=== PATIENT | male | born 1985 | race Caucasian/White ===

== ENCOUNTER 2022-03-17 10:18 | Observation (INO) ==
[2022-03-17] MEDS ORDERED: HYDROmorphone 1 MG/1 ML SYRINGE IV STA (10:43)
[2022-03-17] MEDS ORDERED: KETOROLAC 30 MG/1 ML VIAL IV STA (10:43)
[2022-03-17] MEDS ORDERED: SODIUM CHLORIDE 0.9% 1,000 ML IV STA (10:43)
[2022-03-17] MEDS ORDERED: ONDANSETRON 4 MG/2 ML VIAL IV STA (10:43)
[2022-03-17 11:00] LABS: Basophils # 0.1 10*3/uL (0.0-0.2); Basophils % 0.5 % (0.0-0.8); Eosinophils # 0.3 10*3/uL (0.0-0.87); Eosinophils % 1.9 % (0.00-10.9); Hematocrit 41.3 VOL% (42.0-52.0); Hemoglobin 14.1 GM/DL (14.0-18.0); Immature Granulocytes % 0.3 %; Immature Granulocytes Absolute 0.05 #; Lymphocytes # 1.6 10*3/uL (1.4-4.0); Lymphocytes % 11.1 % (21.2-54.2); Mean Corpuscular HGB Conc 34.1 GM/DL (32-36); Mean Corpuscular Volume 85.7 FL (87-102); Mean Platelet Volume 11.1 FL (9.6-12.0); Monocytes # 1.2 10*3/uL (0.11-0.8); Monocytes % 8.1 % (1.7-12.7); Neutrophils % 78.1 % (38.7-73.9); Platelet Count 229 T/CUMM (130-400); Red Blood Count 4.82 MC/CUMM (3.8-5.5); Red Cell Distribution Width 12.5 % (9.3-17.3); White Blood Count 14.6 T/CUMM (4-12)
[2022-03-17 11:20] LABS: Albumin 3.4 G/DL (3.4-5.0); Bilirubin,Total 0.6 MG/DL (0.20-1.00); Calcium 9.1 MG/DL (8.5-10.1); Osmolality,Calculated 277.7 MOS/KG (273-304); Potassium 3.8 MMOL/L (3.5-5.1); Total Protein 6.9 G/DL (6.4-8.2)
[2022-03-17 11:49] LABS: Bilirubin,Urine Negative (Negative); Blood, Urine Negative (Negative); Glucose,Urine (UA) Negative (Negative); Ketones,Urine Negative (Negative); Nitrite,Urine Negative (Negative); Protein,Urine Negative (Negative); Urine Appearance Clear (Clear); Urine Color Yellow (Yellow); Urine Urobilinogen 0.2 eU/dL (<2.0); Urine pH 5.5 (4.5-8.0)
[2022-03-17 11:54] LABS: Mucus,Urine Occasional /LPF (Occasional); RBC,Urine 1 /HPF (0-4)
[2022-03-17] MEDS ORDERED: cefTRIAXone 1,000 MG in SODIUM CHLORIDE 0.9% 100 ML IV ONE (12:16)
[2022-03-17] MEDS ORDERED: SIMETHICONE CHEW 125 MG TABLET PO PRN (12:17)
[2022-03-17] MEDS ORDERED: PROMETHAZINE 25 MG/1 ML VIAL IM PRN (12:17)
[2022-03-17] MEDS ORDERED: diphenhydrAMINE 50 MG/1 ML VIAL IV PRN ×2 (12:17→13:05)
[2022-03-17] MEDS ORDERED: ONDANSETRON 4 MG/2 ML VIAL IV PRN ×2 (12:17→13:05)
[2022-03-17] MEDS ORDERED: HYDROmorphone 1 MG/1 ML SYRINGE IV PRN (12:21)
[2022-03-17] MEDS ORDERED: oxyCODONE/ACETAMINOPHEN 5-325 MG TABLET PO PRN (12:21)
[2022-03-17] MEDS: SODIUM CHLORIDE 0.9% 1,000 ML IV SCH ×2 (12:46→22:20)
[2022-03-17] MEDS ORDERED: PROMETHAZINE INJ 25 MG in SODIUM CHLORIDE 0.9% 50 ML IV PRN (13:05)
[2022-03-17] MEDS ORDERED: MEPERIDINE 25 MG/1 ML VIAL IV PRN (13:05)
[2022-03-17] MEDS ORDERED: ROCURONIUM 50 MG/5 ML VIAL IV ONE (13:08)
[2022-03-17] MEDS ORDERED: propofoL 200 MG/20 ML VIAL IV ONE (13:08)
[2022-03-17] MEDS ORDERED: LIDOCAINE 2% 5 ML VIAL ONE (13:08)
[2022-03-17] MEDS ORDERED: fentaNYL 100 MCG/2 ML VIAL ONE (13:08)
[2022-03-17] MEDS ORDERED: SUCCINYLCHOLINE 200 MG/10 ML VIAL ONE (13:08)
[2022-03-17] MEDS ORDERED: MIDAZOLAM 2 MG/2 ML VIAL ONE (13:09)
[2022-03-17] MEDS ORDERED: SEVOFLURANE 1 UNIT/15 MINUTE INH ONE (13:09)
[2022-03-17] MEDS: HYDROmorphone 1 MG/1 ML SYRINGE IV PRN ×2 (14:05→14:10)
[2022-03-17 14:17] LABS: Hyaline Casts,Urine 1 /LPF (0-3); Mucus,Urine Occasional /LPF (Occasional); RBC,Urine 200 /HPF (0-4); Squamous Epithelial Cell,Urine Occasional /HPF (0-10)
[2022-03-17 14:21] LABS: Bilirubin,Urine Negative (Negative); Blood, Urine Large mg/dL (Negative); Glucose,Urine (UA) Negative (Negative); Ketones,Urine Negative (Negative); Nitrite,Urine Negative (Negative); Protein,Urine Negative (Negative); Urine Appearance Clear (Clear); Urine Color Yellow (Yellow); Urine Specific Gravity 1.015 (1.001-1.035); Urine Urobilinogen 0.2 eU/dL (<2.0); Urine pH 5.5 (4.5-8.0)
[2022-03-17] MEDS: ACETAMINOPHEN 325 MG TABLET PO SCH ×2 (14:36→17:55)
[2022-03-17] MEDS: DOCUSATE SODIUM 100 MG CAPSULE PO SCH (22:15)
[2022-03-18] MEDS: ACETAMINOPHEN 325 MG TABLET PO SCH ×3 (01:19→12:38)
[2022-03-18 05:45] LABS: Basophils # 0.1 10*3/uL (0.0-0.2); Basophils % 0.6 % (0.0-0.8); Eosinophils # 0.3 10*3/uL (0.0-0.87); Eosinophils % 3.3 % (0.00-10.9); Hematocrit 39.1 VOL% (42.0-52.0); Hemoglobin 12.8 GM/DL (14.0-18.0); Immature Granulocytes % 0.5 %; Immature Granulocytes Absolute 0.04 #; Lymphocytes # 1.8 10*3/uL (1.4-4.0); Lymphocytes % 21.3 % (21.2-54.2); Mean Corpuscular HGB Conc 32.7 GM/DL (32-36); Mean Corpuscular Volume 88.1 FL (87-102); Mean Platelet Volume 10.9 FL (9.6-12.0); Monocytes # 0.7 10*3/uL (0.11-0.8); Monocytes % 8.4 % (1.7-12.7); Neutrophils % 65.9 % (38.7-73.9); Platelet Count 197 T/CUMM (130-400); Red Blood Count 4.44 MC/CUMM (3.8-5.5); White Blood Count 8.5 T/CUMM (4-12)
[2022-03-18] MEDS ORDERED: FAMOTIDINE 20 MG/2 ML VIAL IV ONE (07:53)
[2022-03-18 07:56] LABS: Calcium 8.5 MG/DL (8.5-10.1); Osmolality,Calculated 277.5 MOS/KG (273-304); Potassium 4.7 MMOL/L (3.5-5.1)
[2022-03-18] MEDS: SODIUM CHLORIDE 0.9% 1,000 ML IV SCH (08:22)
[2022-03-18] MEDS: DOCUSATE SODIUM 100 MG CAPSULE PO SCH (08:45)
[2022-03-18] MEDS ORDERED: LOSARTAN/HCTZ 50-12.5 MG TABLET PO SCH (09:00)
[2022-03-18] MEDS ORDERED: POTASSIUM CHLORIDE 10 MEQ TABLET PO SCH (09:00)
[2022-03-18] MEDS ORDERED: PANTOPRAZOLE 40 MG TABLET PO SCH (09:00)
[2022-03-18] MEDS ORDERED: TAMSULOSIN 0.4 MG CAPSULE PO SCH (09:00)
[2022-03-18 12:25] VITALS: BP 128/75
== END 2022-03-18 13:59 | disposition home or self-care (01) ==
LOC: N.EDINP 10:18 → N.ED 10:18 → N.2W 13:18
PROVIDERS: ADMIT Surgery; ATTEND Surgery